=== PATIENT | male | born 1995 | race Caucasian/White ===

== ENCOUNTER 2025-07-15 06:35 | Emergency (ER) | payer MEDICAID ==
[~2025-07-15] VITALS: Ht 167.6 cm; Wt 69.9 kg
[2025-07-15] MEDS ORDERED: LIDO30AD10 TP (07:32)
[2025-07-15] MEDS ORDERED: IBUP-1955 PO (07:32)
[2025-07-15] MEDS ORDERED: LIDOCAINE 5% (PATCH) 1 EA PATCH TP ONE (07:33)
[2025-07-15] MEDS ORDERED: KETOROLAC TROMETHAMINE 15 MG/ML VIAL ONE (07:33)
[2025-07-15] MEDS: LIDOCAINE 5% (PATCH) 1 EA PATCH TP STA (07:37)
[2025-07-15] MEDS: KETOROLAC TROMETHAMINE 15 MG/ML VIAL IM ONE (07:39)
[2025-07-15 07:56] VITALS: BP 125/80; TEMP 98.5; O2SAT 99
== END 2025-07-15 07:57 | disposition home or self-care (01) ==
LOC: ER 06:40
DX: R07.89 Other chest pain (principal); Z60.2 Problems related to living alone
CPT/HCPCS: 99283; 71045; 96372; 93005; J1885